=== PATIENT | female | born 1975 | race Caucasian/White ===

== ENCOUNTER 2021-07-31 11:15 | Inpatient (IN) | payer MEDICARE, MEDICAID ==
[~2021-07-31] VITALS: Ht 165.1 cm; Wt 82.7 kg
[2021-07-31] MEDS ORDERED: SODIUM CHLORIDE 0.9% 1000ML BAG (SEPSIS BOLUS) IV ONE (12:00)
[2021-07-31] MEDS ORDERED: CLINDAMYCIN 600 MG in DEXTROSE 5% WATER 50 ML IV ONE (12:30)
[2021-07-31] MEDS ORDERED: VANCOMYCIN 500 MG PREMIX 100 ML IV NR (12:30)
[2021-07-31] MEDS ORDERED: MORPHINE SULFATE 4 MG/ML CPJ (NOT FOR IM USE) IV NR (12:30)
[2021-07-31] MEDS ORDERED: VANCOMYCIN 1 G PREMIX 200 ML IV NR (12:30)
[2021-07-31 12:43] LABS: HEMOGLOBIN. 10.7 g/dL (12.0-16.0); MEAN CORPUSCULAR HEMOGLOBIN 24.6 pg (28.0-32.0); MEAN CORPUSCULAR VOLUME 77.9 fL (81.0-99.0); PLATELET 589 x1000/uL (130-400); RED BLOOD CELL COUNT 4.37 mill/uL (4.2-5.4); RED CELL DISTRIBUTION WIDTH 26.4 % (11.6-14.6)
[2021-07-31] MEDS ORDERED: PIPERACILLIN/TAZ 3.375G PREMIX 50 ML IV NR (12:45)
[2021-07-31] MEDS ORDERED: PIPERACILLIN/TAZOBACTAM 3.375GM/50ML PREMIX IV ONE (12:45)
[2021-07-31 12:49] LABS: CHLORIDE 97 mEq/L (98-107)
[2021-07-31 12:54] LABS: ETHANOL BLOOD < 10 mg/dL
[2021-07-31] MEDS ORDERED: CLINDAMYCIN 600MG PREMIX 50 ML IV NR (13:00)
[2021-07-31 13:20] LABS: PLATELET ESTIMATE INCREASED
[2021-07-31 13:23] LABS: PROTHROMBIN TIME 10.9 sec (9.6-11.0)
[2021-07-31] MEDS ORDERED: HYDROMORPHONE HCL/PF 2MG/ML CPJ IV ONE (15:00)
[2021-07-31 15:04] LABS: CLARITY URINE CLEAR (CLEAR); COLOR URINE YELLOW (YELLOW); KETONES URINE NEGATIVE (NEGATIVE); LEUKOCYTE ESTERASE URINE NEGATIVE (NEGATIVE); NITRITE URINE NEGATIVE (NEGATIVE); OCCULT BLOOD URINE TRACE (NEGATIVE); PROTEIN URINE 3+ (NEGATIVE); UROBILINOGEN URINE 0.2 E.U./dL (0.2-1.0)
[2021-07-31 15:31] LABS: *AMPHETAMINES SCREEN URINE NEGATIVE (NEGATIVE); *BARBITURATES SCREEN URINE NEGATIVE (NEGATIVE)
[2021-07-31 15:32] LABS: *BENZODIAZEPINES SCREEN URINE NEGATIVE (NEGATIVE); *COCAINE SCREEN URINE NEGATIVE (NEGATIVE); CANNABINOID URINE SCREEN NEGATIVE (NEGATIVE); METHADONE URINE SCREEN NEGATIVE (NEGATIVE); OPIATES URINE SCREEN NEGATIVE (NEGATIVE); PHENCYCLIDINE URINE SCREEN NEGATIVE (NEGATIVE)
[2021-07-31 15:33] LABS: HCG SCREEN NEGATIVE
[2021-07-31] MEDS ORDERED: INSULIN REGULAR (HUMULIN R) 300UNITS/3ML VIAL IV NR (16:30)
[2021-07-31] MEDS ORDERED: POTASSIUM CHLORIDE 20MEQ TABLET SR PO NR (18:30)
[2021-07-31] MEDS ORDERED: ACETAMINOPHEN 325MG TABLET PO PRN (18:30)
[2021-07-31] MEDS ORDERED: ONDANSETRON HCL 4MG/2ML INJ IV PRN (18:30)
[2021-07-31] MEDS ORDERED: DIPHENHYDRAMINE 50MG/ML VIAL IV PRN (18:30)
[2021-07-31] MEDS ORDERED: CLONIDINE 0.1MG TABLET PO PRN (18:30)
[2021-07-31] MEDS ORDERED: VANCOMYCIN 1 G PREMIX 200 ML IV SCH (18:30)
[2021-07-31] MEDS: SODIUM CHLORIDE 0.9% 1,000 ML IV SCH ×2 (19:10→23:03)
[2021-07-31] MEDS: HYDRALAZINE 20MG/ML VIAL IV PRN (20:02)
[2021-07-31] MEDS: ENOXAPARIN 40MG/0.4ML SYR SUBCUT SCH (20:16)
[2021-07-31 20:45] VITALS: BP 124/76
[2021-07-31] MEDS: BLOOD SUGAR DIAGNOSTIC STRIP TEST SCH (21:00)
[2021-07-31] MEDS ORDERED: INSULIN GLARGINE UD 100 UNITS/ML SYR SUBCUT SCH (22:00)
[2021-07-31] MEDS: INSULIN LISPRO 100 UNITS/ML SUBCUT SCH (22:52)
[2021-07-31] MEDS: PIPERACILLIN/TAZOBACTAM 3.375 G in DEXTROSE 5% WATER 50 ML IV SCH (23:20)
[2021-07-31] MEDS ORDERED: NALOXONE HCL 0.4 MG/ML 1ML VIAL IV PRN (23:30)
[2021-08-01] MEDS: MORPHINE SULFATE 2 MG/ML CPJ (NOT FOR IM USE) IV PRN ×2 (00:02→21:32)
[2021-08-01] MEDS ORDERED: LOPERAMIDE HCL 2MG CAPSULE PO PRN (01:00)
[2021-08-01] MEDS ORDERED: LOPE2CAP PO (02:01)
[2021-08-01] MEDS ORDERED: DICY20TA11 MT (02:01)
[2021-08-01] MEDS ORDERED: MICO14CR6 TP (02:01)
[2021-08-01] MEDS ORDERED: NITR0.4T49 SL (02:01)
[2021-08-01] MEDS ORDERED: AMLO10TA80 MT (02:01)
[2021-08-01] MEDS ORDERED: QUET25TA MT (02:01)
[2021-08-01] MEDS ORDERED: GABA-532 MT (02:01)
[2021-08-01] MEDS ORDERED: *PATIENT'S OWN MEDICATION STORAGE XX SCH (02:30)
[2021-08-01 04:00] VITALS: BP 127/67
[2021-08-01] MEDS ORDERED: VANCOMYCIN 500 MG PREMIX 100 ML IV SCH (05:00)
[2021-08-01] MEDS: DEXTROSE 50% WATER 50ML SYRINGE IV PRN (06:02)
[2021-08-01] MEDS: BLOOD SUGAR DIAGNOSTIC STRIP TEST SCH ×4 (06:09→20:42)
[2021-08-01] MEDS: GABAPENTIN 300MG CAPSULE PO SCH ×3 (06:14→21:32)
[2021-08-01] MEDS: PIPERACILLIN/TAZOBACTAM 3.375 G in DEXTROSE 5% WATER 50 ML IV SCH ×4 (06:14→21:32)
[2021-08-01] MEDS: INSULIN LISPRO 100 UNITS/ML SUBCUT SCH ×4 (06:17→20:43)
[2021-08-01 07:23] LABS: BASOPHILS % 0.3 % (0.0-2.0); EOSINOPHILS % 1.3 % (0.0-5.0); HEMATOCRIT. 31.1 % (36.0-48.0); HEMOGLOBIN. 9.7 g/dL (12.0-16.0); MEAN CORPUSCULAR HEMOGLOBIN 24.4 pg (28.0-32.0); MEAN PLATELET VOLUME 7.8 fl (7.4-10.4); MONOCYTES % 3.2 % (2.0-8.0); NEUTROPHILS % 85.2 % (40.0-76.0); PLATELET 448 x1000/uL (130-400); RED BLOOD CELL COUNT 3.99 mill/uL (4.2-5.4); RED CELL DISTRIBUTION WIDTH 26.1 % (11.6-14.6)
[2021-08-01 08:00] VITALS: BP 181/86
[2021-08-01] MEDS ORDERED: POTASSIUM CHLORIDE 20MEQ TABLET SR PO NR ×2 (08:30→12:00)
[2021-08-01] MEDS: AMLODIPINE 10MG TABLET PO SCH (08:38)
[2021-08-01 12:00] VITALS: BP 157/77
[2021-08-01] MEDS: SODIUM CHLORIDE 0.9% 1,000 ML IV SCH (14:18)
[2021-08-01 16:00] VITALS: BP 142/82
[2021-08-01] MEDS: ACETAMINOPHEN 325MG TABLET PO PRN (19:29)
[2021-08-01 20:00] VITALS: BP 153/78
[2021-08-01] MEDS: ENOXAPARIN 40MG/0.4ML SYR SUBCUT SCH (20:28)
[2021-08-01] MEDS: QUETIAPINE FUMARATE 25MG TABLET PO SCH (21:32)
[2021-08-01] MEDS: INSULIN GLARGINE UD 100 UNITS/ML SYR SUBCUT SCH (21:35)
[2021-08-01] MEDS ORDERED: VANCOMYCIN 750 MG PREMIX 150 ML IV SCH (23:00)
[2021-08-02] VITALS: BP 146/75
[2021-08-02] MEDS: SODIUM CHLORIDE 0.9% 1,000 ML IV SCH ×3 (01:00→21:23)
[2021-08-02 04:00] VITALS: BP 145/70
[2021-08-02] MEDS: GABAPENTIN 300MG CAPSULE PO SCH ×3 (05:18→21:23)
[2021-08-02] MEDS: PIPERACILLIN/TAZOBACTAM 3.375 G in DEXTROSE 5% WATER 50 ML IV SCH ×3 (05:18→21:23)
[2021-08-02] MEDS: MORPHINE SULFATE 2 MG/ML CPJ (NOT FOR IM USE) IV PRN ×2 (05:19→18:12)
[2021-08-02] MEDS: DEXTROSE 50% WATER 50ML SYRINGE IV PRN (06:45)
[2021-08-02 06:52] LABS: BASOPHILS % 0.7 % (0.0-2.0); HEMATOCRIT. 30.5 % (36.0-48.0); HEMOGLOBIN. 9.6 g/dL (12.0-16.0); LYMPHOCYTES % 9.9 % (20.0-50.0); MEAN CORPUSCULAR HEMOGLOBIN 24.4 pg (28.0-32.0); MEAN CORPUSCULAR VOLUME 77.4 fL (81.0-99.0); MONOCYTES % 3.4 % (2.0-8.0); PLATELET 424 x1000/uL (130-400); RED BLOOD CELL COUNT 3.94 mill/uL (4.2-5.4)
[2021-08-02] MEDS: BLOOD SUGAR DIAGNOSTIC STRIP TEST SCH ×4 (07:11→21:15)
[2021-08-02] MEDS: INSULIN LISPRO 100 UNITS/ML SUBCUT SCH ×4 (07:12→21:00)
[2021-08-02 08:00] VITALS: BP 150/80
[2021-08-02] MEDS: AMLODIPINE 10MG TABLET PO SCH (09:38)
[2021-08-02 12:00] VITALS: BP 164/80
[2021-08-02 16:00] VITALS: BP 152/78
[2021-08-02 20:00] VITALS: BP 160/89
[2021-08-02] MEDS: QUETIAPINE FUMARATE 25MG TABLET PO SCH (21:23)
[2021-08-02] MEDS: INSULIN GLARGINE UD 100 UNITS/ML SYR SUBCUT SCH (21:24)
[2021-08-03] VITALS: BP 134/74
[2021-08-03 04:00] VITALS: BP 159/89
[2021-08-03] MEDS: MORPHINE SULFATE 2 MG/ML CPJ (NOT FOR IM USE) IV PRN ×3 (05:13→20:44)
[2021-08-03] MEDS: GABAPENTIN 300MG CAPSULE PO SCH ×3 (06:00→21:46)
[2021-08-03] MEDS: PIPERACILLIN/TAZOBACTAM 3.375 G in DEXTROSE 5% WATER 50 ML IV SCH ×3 (06:08→21:46)
[2021-08-03] MEDS: SODIUM CHLORIDE 0.9% 1,000 ML IV SCH ×2 (06:09→17:28)
[2021-08-03] MEDS: BLOOD SUGAR DIAGNOSTIC STRIP TEST SCH ×4 (06:23→20:32)
[2021-08-03] MEDS: INSULIN LISPRO 100 UNITS/ML SUBCUT SCH ×5 (06:23→20:32)
[2021-08-03 08:00] VITALS: BP 162/83
[2021-08-03] MEDS ORDERED: LIDOCAINE HCL 1% 30ML VIAL (10MG/ML) ONE (09:21)
[2021-08-03] MEDS ORDERED: IODIXANOL 320MG/ML 100 ML BOTTLE IV ONE (09:21)
[2021-08-03] MEDS ORDERED: FENTANYL CITRATE/PF 50MCG/ML 2ML VIAL ONE (09:49)
[2021-08-03] MEDS ORDERED: MIDAZOLAM HCL 2 MG/2 ML VIAL ONE (09:49)
[2021-08-03] MEDS ORDERED: FENTANYL CITRATE/PF 50MCG/ML 5ML VIAL ONE (09:50)
[2021-08-03] MEDS ORDERED: MIDAZOLAM HCL 5 MG/5 ML VIAL ONE (09:50)
[2021-08-03] MEDS ORDERED: HEPARIN 1000 UNITS/ML 10ML ONE (10:19)
[2021-08-03] MEDS ORDERED: IOHEXOL-300 100 ML BOTTLE ONE (10:24)
[2021-08-03 12:00] VITALS: BP 140/83
[2021-08-03] MEDS: CLOPIDOGREL 75MG TABLET PO SCH (13:18)
[2021-08-03] MEDS: AMLODIPINE 10MG TABLET PO SCH (13:18)
[2021-08-03 20:00] VITALS: BP 149/77
[2021-08-03] MEDS: ENOXAPARIN 40MG/0.4ML SYR SUBCUT SCH (20:44)
[2021-08-03] MEDS: QUETIAPINE FUMARATE 25MG TABLET PO SCH (20:44)
[2021-08-03] MEDS: INSULIN GLARGINE UD 100 UNITS/ML SYR SUBCUT SCH (21:29)
[2021-08-04] VITALS: BP 139/67
[2021-08-04] MEDS: SODIUM CHLORIDE 0.9% 1,000 ML IV SCH ×3 (03:34→22:20)
[2021-08-04 04:00] VITALS: BP 134/71
[2021-08-04] MEDS: GABAPENTIN 300MG CAPSULE PO SCH ×3 (06:09→20:39)
[2021-08-04] MEDS: MORPHINE SULFATE 2 MG/ML CPJ (NOT FOR IM USE) IV PRN ×3 (06:09→22:16)
[2021-08-04] MEDS: PIPERACILLIN/TAZOBACTAM 3.375 G in DEXTROSE 5% WATER 50 ML IV SCH ×3 (06:09→22:16)
[2021-08-04] MEDS: BLOOD SUGAR DIAGNOSTIC STRIP TEST SCH ×4 (06:10→20:20)
[2021-08-04] MEDS: INSULIN LISPRO 100 UNITS/ML SUBCUT SCH ×4 (06:10→20:37)
[2021-08-04 06:28] LABS: BASOPHILS % 0.3 % (0.0-2.0); EOSINOPHILS % 1.3 % (0.0-5.0); HEMATOCRIT. 28.3 % (36.0-48.0); HEMOGLOBIN. 8.9 g/dL (12.0-16.0); LYMPHOCYTES % 11.6 % (20.0-50.0); MEAN CORPUSCULAR HEMOGLOBIN 24.8 pg (28.0-32.0); MEAN CORPUSCULAR VOLUME 78.8 fL (81.0-99.0); MEAN PLATELET VOLUME 8.6 fl (7.4-10.4); MONOCYTES % 3.1 % (2.0-8.0); NEUTROPHILS % 83.7 % (40.0-76.0); PLATELET 386 x1000/uL (130-400); RED BLOOD CELL COUNT 3.59 mill/uL (4.2-5.4); RED CELL DISTRIBUTION WIDTH 26.5 % (11.6-14.6)
[2021-08-04 08:00] VITALS: BP 132/49
[2021-08-04] MEDS: CLOPIDOGREL 75MG TABLET PO SCH (09:41)
[2021-08-04] MEDS: AMLODIPINE 10MG TABLET PO SCH (09:42)
[2021-08-04 12:00] VITALS: BP 116/47
[2021-08-04] MEDS ORDERED: VANCOMYCIN 750 MG PREMIX 150 ML IV NR (12:00)
[2021-08-04 16:00] VITALS: BP 133/66
[2021-08-04 20:03] VITALS: BP 135/67
[2021-08-04] MEDS: QUETIAPINE FUMARATE 25MG TABLET PO SCH (20:19)
[2021-08-04] MEDS: ENOXAPARIN 40MG/0.4ML SYR SUBCUT SCH (20:19)
[2021-08-04] MEDS: INSULIN GLARGINE UD 100 UNITS/ML SYR SUBCUT SCH (20:40)
[2021-08-05] VITALS (11 sets, daily range): BP systolic 115–157; BP diastolic 52–78
[2021-08-05] MEDS: PIPERACILLIN/TAZOBACTAM 3.375 G in DEXTROSE 5% WATER 50 ML IV SCH ×3 (05:26→22:04)
[2021-08-05] MEDS: GABAPENTIN 300MG CAPSULE PO SCH ×3 (05:26→22:03)
[2021-08-05] MEDS: BLOOD SUGAR DIAGNOSTIC STRIP TEST SCH ×4 (05:30→21:00)
[2021-08-05] MEDS: INSULIN LISPRO 100 UNITS/ML SUBCUT SCH ×4 (05:30→21:00)
[2021-08-05] MEDS ORDERED: BUPIVACAINE HCL/PF 0.5% (5MG/ML) 10ML ONE (07:10)
[2021-08-05] MEDS ORDERED: LIDOCAINE HCL/EPINEPHRINE 1%-EPI 1:100,000 20 ML VIAL ONE (07:10)
[2021-08-05] MEDS ORDERED: VANCOMYCIN HCL 1 GM/VIAL ONE (07:11)
[2021-08-05] MEDS ORDERED: POLYMYXIN B SULFATE 500000 UNITS/VIAL ONE (07:11)
[2021-08-05 07:19] LABS: HEMATOCRIT. 26.5 % (36.0-48.0); HEMOGLOBIN. 8.1 g/dL (12.0-16.0); MEAN CORPUSCULAR HEMOGLOBIN 24.2 pg (28.0-32.0); MEAN CORPUSCULAR VOLUME 79.5 fL (81.0-99.0); MEAN PLATELET VOLUME 8.5 fl (7.4-10.4); PLATELET 422 x1000/uL (130-400); RED BLOOD CELL COUNT 3.33 mill/uL (4.2-5.4); RED CELL DISTRIBUTION WIDTH 26.6 % (11.6-14.6)
[2021-08-05] MEDS ORDERED: ONDANSETRON HCL 4MG/2ML INJ IV PRN (07:45)
[2021-08-05] MEDS ORDERED: SODIUM CHLORIDE 0.9% 1,000 ML IV ONE (07:45)
[2021-08-05] MEDS ORDERED: MORPHINE SULFATE 2 MG/ML CPJ (NOT FOR IM USE) IV PRN (07:45)
[2021-08-05] MEDS ORDERED: MEPERIDINE HCL/PF 25MG/ML CPJ IV PRN ×2 (07:45)
[2021-08-05] MEDS ORDERED: FENTANYL CITRATE/PF 50MCG/ML 2ML VIAL ONE (07:48)
[2021-08-05] MEDS ORDERED: PROPOFOL 200MG/20ML VIAL IV ONE (07:48)
[2021-08-05] MEDS ORDERED: MIDAZOLAM HCL 2 MG/2 ML VIAL ONE (07:48)
[2021-08-05] MEDS ORDERED: GLYCOPYRROLATE 0.2 MG/ML 2ML VIAL ONE (07:49)
[2021-08-05] MEDS ORDERED: METOCLOPRAMIDE HCL 10MG/2ML VIAL ONE (07:49)
[2021-08-05] MEDS: AMLODIPINE 10MG TABLET PO SCH ×2 (08:51→14:53)
[2021-08-05] MEDS: CLOPIDOGREL 75MG TABLET PO SCH (08:52)
[2021-08-05] MEDS: SODIUM CHLORIDE 0.9% 1,000 ML IV SCH (09:00)
[2021-08-05] MEDS: HYDROMORPHONE HCL/PF 2MG/ML CPJ IV PRN ×4 (09:08→12:05)
[2021-08-05 10:05] LABS: HEMATOCRIT 25.1 % (36.0-48.0); HEMOGLOBIN 7.8 g/dL (12.0-16.0)
[2021-08-05 10:12] LABS: PLATELET ESTIMATE SLIGHTLY INCREASED
[2021-08-05 13:25] LABS: HEMATOCRIT 25.5 % (36.0-48.0); HEMOGLOBIN 7.9 g/dL (12.0-16.0)
[2021-08-05] MEDS: MORPHINE SULFATE 2 MG/ML CPJ (NOT FOR IM USE) IV PRN ×2 (15:27→22:23)
[2021-08-05] MEDS: HYDRALAZINE 20MG/ML VIAL IV PRN (15:44)
[2021-08-05] MEDS: ACETAMINOPHEN 325MG TABLET PO PRN (19:05)
[2021-08-05] MEDS: QUETIAPINE FUMARATE 25MG TABLET PO SCH (22:03)
[2021-08-05] MEDS: INSULIN GLARGINE UD 100 UNITS/ML SYR SUBCUT SCH (22:09)
[2021-08-06] VITALS: BP 156/70
[2021-08-06 04:00] VITALS: BP 141/97
[2021-08-06] MEDS: GABAPENTIN 300MG CAPSULE PO SCH ×3 (06:16→20:36)
[2021-08-06] MEDS: INSULIN LISPRO 100 UNITS/ML SUBCUT SCH ×4 (06:17→20:27)
[2021-08-06] MEDS: BLOOD SUGAR DIAGNOSTIC STRIP TEST SCH ×4 (06:17→20:23)
[2021-08-06 06:30] LABS: HEMATOCRIT. 28.2 % (36.0-48.0); HEMOGLOBIN. 8.6 g/dL (12.0-16.0); MEAN CORPUSCULAR HEMOGLOBIN 25.4 pg (28.0-32.0); MEAN CORPUSCULAR VOLUME 82.7 fL (81.0-99.0); MEAN PLATELET VOLUME 8.3 fl (7.4-10.4); PLATELET 366 x1000/uL (130-400); RED CELL DISTRIBUTION WIDTH 25.1 % (11.6-14.6)
[2021-08-06] MEDS: SODIUM CHLORIDE 0.9% 1,000 ML IV SCH ×2 (06:35→14:07)
[2021-08-06 08:00] VITALS: BP 120/78
[2021-08-06] MEDS: CLOPIDOGREL 75MG TABLET PO SCH (08:12)
[2021-08-06] MEDS: ACETAMINOPHEN 325MG TABLET PO PRN (08:12)
[2021-08-06] MEDS: AMLODIPINE 10MG TABLET PO SCH (08:12)
[2021-08-06 12:00] VITALS: BP 142/64
[2021-08-06] MEDS: HYDROCODONE/ACETAMINOPHEN 5/325MG TABLET PO PRN (14:59)
[2021-08-06 16:00] VITALS: BP 147/67
[2021-08-06] MEDS ORDERED: TETANUS, DIPHTHERIA, PERTUSSIS VAC/PF 0.5ML (>10YR OLD) IM ONE (16:00)
[2021-08-06 16:21] LABS: PLATELET ESTIMATE NORMAL
[2021-08-06 20:00] VITALS: BP 152/77
[2021-08-06] MEDS: ENOXAPARIN 40MG/0.4ML SYR SUBCUT SCH (20:21)
[2021-08-06] MEDS: QUETIAPINE FUMARATE 25MG TABLET PO SCH (20:36)
[2021-08-06] MEDS: INSULIN GLARGINE UD 100 UNITS/ML SYR SUBCUT SCH (22:09)
[2021-08-07] VITALS: BP 149/80
[2021-08-07] MEDS: SODIUM CHLORIDE 0.9% 1,000 ML IV SCH ×3 (01:17→21:14)
[2021-08-07 04:00] VITALS: BP 165/85
[2021-08-07] MEDS: CLONIDINE 0.2MG TABLET PO PRN ×2 (05:46→18:58)
[2021-08-07] MEDS: GABAPENTIN 300MG CAPSULE PO SCH ×3 (05:46→21:10)
[2021-08-07] MEDS: HYDROCODONE/ACETAMINOPHEN 5/325MG TABLET PO PRN ×3 (05:48→21:11)
[2021-08-07] MEDS: BLOOD SUGAR DIAGNOSTIC STRIP TEST SCH ×4 (05:49→21:12)
[2021-08-07 06:39] LABS: HEMATOCRIT. 27.3 % (36.0-48.0); HEMOGLOBIN. 8.7 g/dL (12.0-16.0); MEAN PLATELET VOLUME 8.3 fl (7.4-10.4); PLATELET 409 x1000/uL (130-400); RED BLOOD CELL COUNT 3.33 mill/uL (4.2-5.4); RED CELL DISTRIBUTION WIDTH 25.2 % (11.6-14.6)
[2021-08-07] MEDS: INSULIN LISPRO 100 UNITS/ML SUBCUT SCH ×4 (07:40→21:00)
[2021-08-07 08:00] VITALS: BP 146/67
[2021-08-07] MEDS: AMLODIPINE 10MG TABLET PO SCH (08:23)
[2021-08-07] MEDS: CLOPIDOGREL 75MG TABLET PO SCH (08:23)
[2021-08-07 12:00] VITALS: BP 142/67
[2021-08-07 13:36] LABS: PLATELET ESTIMATE SLIGHTLY INCREASED
[2021-08-07 16:00] VITALS: BP 167/79
[2021-08-07] MEDS: ENOXAPARIN 40MG/0.4ML SYR SUBCUT SCH (19:58)
[2021-08-07 20:00] VITALS: BP 159/52
[2021-08-07] MEDS: QUETIAPINE FUMARATE 25MG TABLET PO SCH (21:10)
[2021-08-07] MEDS: INSULIN GLARGINE UD 100 UNITS/ML SYR SUBCUT SCH (21:12)
[2021-08-08] VITALS: BP 147/73
[2021-08-08 04:00] VITALS: BP 149/68
[2021-08-08] MEDS: GABAPENTIN 300MG CAPSULE PO SCH ×3 (06:26→22:40)
[2021-08-08] MEDS: SODIUM CHLORIDE 0.9% 1,000 ML IV SCH ×2 (06:26→17:17)
[2021-08-08] MEDS: BLOOD SUGAR DIAGNOSTIC STRIP TEST SCH ×4 (06:26→20:28)
[2021-08-08] MEDS: DEXTROSE 50% WATER 50ML SYRINGE IV PRN (06:41)
[2021-08-08 06:52] LABS: BASOPHILS % 0.7 % (0.0-2.0); EOSINOPHILS % 1.9 % (0.0-5.0); HEMATOCRIT. 25.9 % (36.0-48.0); HEMOGLOBIN. 8.4 g/dL (12.0-16.0); LYMPHOCYTES % 11.3 % (20.0-50.0); MEAN CORPUSCULAR VOLUME 80.4 fL (81.0-99.0); MEAN PLATELET VOLUME 8.3 fl (7.4-10.4); NEUTROPHILS % 80.1 % (40.0-76.0); PLATELET 398 x1000/uL (130-400); RED BLOOD CELL COUNT 3.22 mill/uL (4.2-5.4); RED CELL DISTRIBUTION WIDTH 25.5 % (11.6-14.6)
[2021-08-08] MEDS: HYDROCODONE/ACETAMINOPHEN 5/325MG TABLET PO PRN ×2 (07:08→20:42)
[2021-08-08] MEDS: INSULIN LISPRO 100 UNITS/ML SUBCUT SCH ×4 (07:13→20:40)
[2021-08-08 08:00] VITALS: BP 159/81
[2021-08-08] MEDS: CLOPIDOGREL 75MG TABLET PO SCH (08:50)
[2021-08-08] MEDS: AMLODIPINE 10MG TABLET PO SCH (08:50)
[2021-08-08 12:00] VITALS: BP 145/69
[2021-08-08 16:00] VITALS: BP 153/75
[2021-08-08 20:00] VITALS: BP 167/72
[2021-08-08] MEDS: QUETIAPINE FUMARATE 25MG TABLET PO SCH (20:28)
[2021-08-08] MEDS: ENOXAPARIN 40MG/0.4ML SYR SUBCUT SCH (20:28)
[2021-08-08] MEDS: HYDRALAZINE 20MG/ML VIAL IV PRN (22:40)
[2021-08-08] MEDS: INSULIN GLARGINE UD 100 UNITS/ML SYR SUBCUT SCH (22:41)
[2021-08-09] VITALS: BP 119/57
[2021-08-09 04:00] VITALS: BP 134/65
[2021-08-09] MEDS: GABAPENTIN 300MG CAPSULE PO SCH ×3 (05:28→21:17)
[2021-08-09] MEDS: SODIUM CHLORIDE 0.9% 1,000 ML IV SCH ×3 (05:52→21:56)
[2021-08-09 06:26] LABS: BASOPHILS % 0.7 % (0.0-2.0); HEMATOCRIT. 26.4 % (36.0-48.0); HEMOGLOBIN. 8.3 g/dL (12.0-16.0); LYMPHOCYTES % 9.9 % (20.0-50.0); MEAN CORPUSCULAR HEMOGLOBIN 25.7 pg (28.0-32.0); MEAN CORPUSCULAR VOLUME 81.5 fL (81.0-99.0); MEAN PLATELET VOLUME 8.4 fl (7.4-10.4); MONOCYTES % 4.3 % (2.0-8.0); NEUTROPHILS % 83.1 % (40.0-76.0); PLATELET 439 x1000/uL (130-400); RED BLOOD CELL COUNT 3.23 mill/uL (4.2-5.4); RED CELL DISTRIBUTION WIDTH 25.1 % (11.6-14.6)
[2021-08-09] MEDS: BLOOD SUGAR DIAGNOSTIC STRIP TEST SCH ×4 (06:26→21:16)
[2021-08-09] MEDS: INSULIN LISPRO 100 UNITS/ML SUBCUT SCH ×4 (06:43→21:16)
[2021-08-09 08:00] VITALS: BP 139/91
[2021-08-09] MEDS: HYDROCODONE/ACETAMINOPHEN 5/325MG TABLET PO PRN ×3 (08:32→20:35)
[2021-08-09] MEDS: CLOPIDOGREL 75MG TABLET PO SCH (08:33)
[2021-08-09] MEDS: AMLODIPINE 10MG TABLET PO SCH (08:33)
[2021-08-09 12:00] VITALS: BP 140/66
[2021-08-09] MEDS ORDERED: CLOP75TA15 PO (14:36)
[2021-08-09] MEDS ORDERED: GABA-532 PO (14:36)
[2021-08-09 16:00] VITALS: BP 134/69
[2021-08-09 20:00] VITALS: BP 154/76
[2021-08-09] MEDS: QUETIAPINE FUMARATE 25MG TABLET PO SCH (20:34)
[2021-08-09] MEDS: ENOXAPARIN 40MG/0.4ML SYR SUBCUT SCH (20:34)
[2021-08-09] MEDS: INSULIN GLARGINE UD 100 UNITS/ML SYR SUBCUT SCH (21:18)
[2021-08-10] VITALS: BP 157/71
[2021-08-10 04:00] VITALS: BP 100/64
[2021-08-10] MEDS: GABAPENTIN 300MG CAPSULE PO SCH ×3 (05:16→21:37)
[2021-08-10] MEDS: BLOOD SUGAR DIAGNOSTIC STRIP TEST SCH ×4 (06:44→20:19)
[2021-08-10] MEDS: INSULIN LISPRO 100 UNITS/ML SUBCUT SCH ×4 (07:40→20:19)
[2021-08-10] MEDS: CLOPIDOGREL 75MG TABLET PO SCH (09:41)
[2021-08-10] MEDS: AMLODIPINE 10MG TABLET PO SCH (09:41)
[2021-08-10] MEDS: SODIUM CHLORIDE 0.9% 1,000 ML IV SCH ×2 (09:42→19:01)
[2021-08-10] MEDS: HYDROCODONE/ACETAMINOPHEN 5/325MG TABLET PO PRN ×3 (09:42→20:20)
[2021-08-10] MEDS ORDERED: INSLIS SUBCUT (12:47)
[2021-08-10] MEDS ORDERED: LANTUSUD SUBCUT (12:47)
[2021-08-10 16:00] VITALS: BP 127/69
[2021-08-10 16:54] LABS: HEMATOCRIT 28.4 % (36.0-48.0); HEMOGLOBIN 8.8 g/dL (12.0-16.0); MEAN CORPUSCULAR VOLUME 81.2 fL (81.0-99.0); PLATELET 530 x1000/uL (130-400); RED CELL DISTRIBUTION WIDTH 24.8 % (11.6-14.6)
[2021-08-10 20:00] VITALS: BP 156/67
[2021-08-10] MEDS: ENOXAPARIN 40MG/0.4ML SYR SUBCUT SCH (20:12)
[2021-08-10] MEDS: QUETIAPINE FUMARATE 25MG TABLET PO SCH (20:19)
[2021-08-10] MEDS: INSULIN GLARGINE UD 100 UNITS/ML SYR SUBCUT SCH (21:37)
[2021-08-10 21:52] VITALS: BP_SYST 156; BP_SYST 160; BP_DIAS 67; BP_DIAS 90
[2021-08-11] VITALS: BP 146/71
[2021-08-11 04:00] VITALS: BP 123/72
[2021-08-11] MEDS: SODIUM CHLORIDE 0.9% 1,000 ML IV SCH ×2 (05:00→15:00)
[2021-08-11] MEDS: GABAPENTIN 300MG CAPSULE PO SCH ×3 (05:38→21:27)
[2021-08-11] MEDS: INSULIN LISPRO 100 UNITS/ML SUBCUT SCH ×4 (06:23→21:00)
[2021-08-11] MEDS: BLOOD SUGAR DIAGNOSTIC STRIP TEST SCH ×4 (06:23→20:06)
[2021-08-11 08:00] VITALS: BP 171/89
[2021-08-11] MEDS: CLONIDINE 0.2MG TABLET PO PRN (09:39)
[2021-08-11] MEDS: CLOPIDOGREL 75MG TABLET PO SCH (09:39)
[2021-08-11] MEDS: AMLODIPINE 10MG TABLET PO SCH (09:40)
[2021-08-11 12:00] VITALS: BP 121/62
[2021-08-11 16:00] VITALS: BP 140/72
[2021-08-11] MEDS: ACETAMINOPHEN 325MG TABLET PO PRN ×2 (17:26→21:27)
[2021-08-11 20:00] VITALS: BP 143/72
[2021-08-11] MEDS: QUETIAPINE FUMARATE 25MG TABLET PO SCH (20:05)
[2021-08-11] MEDS: ENOXAPARIN 40MG/0.4ML SYR SUBCUT SCH (20:06)
[2021-08-11] MEDS: INSULIN GLARGINE UD 100 UNITS/ML SYR SUBCUT SCH (21:28)
[2021-08-12] VITALS: BP 133/76
[2021-08-12] MEDS: SODIUM CHLORIDE 0.9% 1,000 ML IV SCH (01:17)
[2021-08-12 04:00] VITALS: BP 151/81
[2021-08-12] MEDS: BLOOD SUGAR DIAGNOSTIC STRIP TEST SCH (06:10)
[2021-08-12] MEDS: GABAPENTIN 300MG CAPSULE PO SCH (06:11)
[2021-08-12] MEDS: INSULIN LISPRO 100 UNITS/ML SUBCUT SCH (07:40)
[2021-08-12 08:00] VITALS: BP 170/90
[2021-08-12] MEDS: AMLODIPINE 10MG TABLET PO SCH (08:27)
[2021-08-12] MEDS: CLOPIDOGREL 75MG TABLET PO SCH (08:27)
== END 2021-08-12 09:40 | disposition home health service (06) | DRG 853 ==
LOC: ER 11:15 → EDBEDREQ 15:03 → EDBEDREQTM 15:03 → EDBEDREQSVC 15:03 → 8WST 16:29 → EDBEDREQTM 16:31 → EDBEDREQ 16:31 → ENRESERV 19:30
PROVIDERS: ADMIT Internal Medicine; ATTEND Internal Medicine
PROC: 047N34Z Dilation of Left Popliteal Artery with Drug-eluting Intraluminal Device, Percutaneous Approach (ICD-10-PCS; principal; 2021-08-03)
PROC: 047L34Z Dilation of Left Femoral Artery with Drug-eluting Intraluminal Device, Percutaneous Approach (ICD-10-PCS; 2021-08-03)
PROC: 047U3ZZ Dilation of Left Peroneal Artery, Percutaneous Approach (ICD-10-PCS; 2021-08-03)
PROC: 047S3ZZ Dilation of Left Posterior Tibial Artery, Percutaneous Approach (ICD-10-PCS; 2021-08-03)
PROC: 0YH733Z Insertion of Infusion Device into Right Femoral Region, Percutaneous Approach (ICD-10-PCS; 2021-08-03)
PROC: B41G1ZZ Fluoroscopy of Left Lower Extremity Arteries using Low Osmolar Contrast (ICD-10-PCS; 2021-08-03)
PROC: B41F1ZZ Fluoroscopy of Right Lower Extremity Arteries using Low Osmolar Contrast (ICD-10-PCS; 2021-08-03)
PROC: 04HJ33Z Insertion of Infusion Device into Left External Iliac Artery, Percutaneous Approach (ICD-10-PCS; 2021-08-03)
PROC: 04HN33Z Insertion of Infusion Device into Left Popliteal Artery, Percutaneous Approach (ICD-10-PCS; 2021-08-03)
PROC: 0Y6J0Z1 Detachment at Left Lower Leg, High, Open Approach (ICD-10-PCS; 2021-08-05)
PROC: 30233N1 Transfusion of Nonautologous Red Blood Cells into Peripheral Vein, Percutaneous Approach (ICD-10-PCS; 2021-08-05)
DX: A41.9 Sepsis, unspecified organism (principal); E43 Unspecified severe protein-calorie malnutrition; L02.612 Cutaneous abscess of left foot; N17.9 Acute kidney failure, unspecified; E11.52 Type 2 diabetes mellitus with diabetic peripheral angiopathy with gangrene; I96 Gangrene, not elsewhere classified; E11.621 Type 2 diabetes mellitus with foot ulcer; D64.9 Anemia, unspecified; E11.22 Type 2 diabetes mellitus with diabetic chronic kidney disease; E11.40 Type 2 diabetes mellitus with diabetic neuropathy, unspecified; E11.65 Type 2 diabetes mellitus with hyperglycemia; E78.00 Pure hypercholesterolemia, unspecified; E87.6 Hypokalemia; I12.9 Hypertensive chronic kidney disease with stage 1 through stage 4 chronic kidney disease, or unspecified chronic kidney disease; L97.529 Non-pressure chronic ulcer of other part of left foot with unspecified severity; Z20.822 Contact with and (suspected) exposure to COVID-19; M85.80 Other specified disorders of bone density and structure, unspecified site; N18.9 Chronic kidney disease, unspecified; Z89.511 Acquired absence of right leg below knee; L89.156 Pressure-induced deep tissue damage of sacral region; Z83.3 Family history of diabetes mellitus; Z68.30 Body mass index [BMI] 30.0-30.9, adult; Z79.899 Other long term (current) drug therapy
CPT/HCPCS: 36415; 37224; 37228; 71045; 73590; 73620; 75710; 80048; 80053; 80202; 80305; 80320; 81003; 82040; 82550; 82962; 83036; 83605; 83735; 84134; 84145; 84484; 84703; 85014; 85018; 85025; 85027; 85651; 86140; 86850; 86900; 86920; 87426; 88307; 88311; 90715; 93005; 93923; 93971; 97110; 97162; 97166; 97530; 99291; A6261; C1725; C1760; C1769; C1887; C1893; C1894; J0360; J1170; J1644; J1650; J1815; J2250; J2270; J2405; J2543; J2704; J2765; J3010; J3370; J3490; J7030; J7040; J7060; L1830; P9016; Q9967; G0480